=== PATIENT | female | born 1925 | race Caucasian/White ===

== ENCOUNTER 2017-09-17 09:12 | Outpatient (CLI) | payer MEDICARE, BC | END 2017-09-17 09:13 | disposition home or self-care (01) | LOC: BICMAMMO 09:12 | PROVIDERS: ATTEND Internal Medicine | DX: Z08 Encounter for follow-up examination after completed treatment for malignant neoplasm (principal); Z85.3 Personal history of malignant neoplasm of breast | CPT/HCPCS: 77066; G0279 ==